=== PATIENT | female | born 1960 | race Caucasian/White ===

== ENCOUNTER 2021-07-10 14:36 | Emergency (ER) | payer BC ==
[~2021-07-10] VITALS: Ht 160 cm; Wt 94.3 kg
== END 2021-07-10 17:10 | disposition home or self-care (01) ==
LOC: ER1 14:36
DX: U07.1 COVID-19 (principal); Z23 Encounter for immunization; E11.9 Type 2 diabetes mellitus without complications; I10 Essential (primary) hypertension; Z90.49 Acquired absence of other specified parts of digestive tract
CPT/HCPCS: 99283; M0243